=== PATIENT | male | born 2000 | race Caucasian/White ===

== ENCOUNTER 2022-02-28 13:49 | Emergency (ER) | payer OTHER | END 2022-02-28 15:25 | disposition home or self-care (01) | LOC: CSHERS 13:49 | DX: S60.811A Abrasion of right wrist, initial encounter (principal); S50.812A Abrasion of left forearm, initial encounter; S80.212A Abrasion, left knee, initial encounter; S90.512A Abrasion, left ankle, initial encounter; V89.2XXA Person injured in unspecified motor-vehicle accident, traffic, initial encounter ==